=== PATIENT | female | born 1980 | race African-American/Black ===

== ENCOUNTER 2017-05-30 08:25 | Outpatient (CLI) | payer MEDICARE, MEDICAID ==
--- NOTE | 2017-05-30 10:10 | PRG ---
DATE OF SERVICE: 05/30/2017 HISTORY: Ms. Lauren Perez is a very pleasant 36-year-old who presents to the [facility] Center for leo luation of an ulceration of her right transmetatarsal amputation stump. The patient has been previou sly seen in the Wound Center for ulcerations of her right transmetatarsal amputation stump. She stat es that she has been performing dressing changes for the ulceration consisting of a Band-Aid alone. Since the patient was last seen in the Wound Center, Ms. Perez has been admitted to [facility] for treatment of cellulitis of the right lower extremity. The patient has also been admitted to [facility] for cholecystectomy. In addition, the patient is now on dialysis for end-stage renal disease. PHYSICAL EXAMINATION: VITAL SIGNS: Temperature 97.9, pulse 82, respirations 18, blood pressure 183/95. Accu-Chek 180. EXTREMITIES: An ulceration of the right transmetatarsal amputation stump is present which measures a pproximately 1.2 x 1.0 cm. Necrotic and nonviable tissue present within the wound margins was debrid ed with an excisional full-thickness debridement with the use of a curette. Desiccated tissue at the periphery of the wound was excised with the use of scissors. No purulent drainage is associated wit h the wound. No erythema of the skin surrounding the wound is present. No maceration of the skin of the periwound is noted. A dorsalis pedis pulse is easily palpable on the right. No significant matt ma of the right transmetatarsal amputation stump is present on exam today. ASSESSMENT AND PLAN: 1. Ulceration of right transmetatarsal amputation stump as described above. Dressing changes of Hyd rofera Blue will be initiated today. These dressing changes are to be performed 3 times per week aft er cleansing and irrigation. The patient will be performing her own dressing changes. Arrangements will be made again for the patient to be seen by the marble coper. I will see Ms. Perez again in 1 wee k. No antibiotics will be prescribed today based upon the appearance of the wound. 2. Diabetes mellitus. The patient's Accu-Chek in clinic today is 180. The patient has been told th at for optimal wound healing, her blood glucoses should remain below 150. 3. Hypertension. 4. History of deep venous thrombosis and pulmonary embolus. 5. Diabetic gastroparesis.
== END 2017-05-30 08:26 | disposition home or self-care (01) ==
LOC: WCC 08:25
PROVIDERS: ATTEND Family Medicine
DX: T87.89 Other complications of amputation stump (principal); E11.69 Type 2 diabetes mellitus with other specified complication; I12.0 Hypertensive chronic kidney disease with stage 5 chronic kidney disease or end stage renal disease; E11.22 Type 2 diabetes mellitus with diabetic chronic kidney disease; E11.43 Type 2 diabetes mellitus with diabetic autonomic (poly)neuropathy; K31.84 Gastroparesis; N18.6 End stage renal disease; Z99.2 Dependence on renal dialysis; Z86.718 Personal history of other venous thrombosis and embolism; Z89.421 Acquired absence of other right toe(s)
CPT/HCPCS: 11042; 99213; G0463

== ENCOUNTER 2017-05-30 13:45 | Outpatient (CLI) | payer MEDICARE, MEDICAID ==
--- NOTE | 2017-05-30 14:55 | ULT ---
BILATERAL UPPER EXTREMITY VENOUS DOPPLER ULTRASOUND FOR PREDIALYSIS ACCESS: Date: 05/30/17 HISTORY: End-stage renal disease. FINDINGS: RIGHT UPPER EXTREMITY: The right cephalic vein measures 3.2 mm in the proximal arm, 1.8 mm in the mid arm, 1.5 mm in the dis lesa arm, 1.7 mm in the antecubital fossa, 1.9 mm in the proximal forearm, 1.8 mm in the mid forearm, and 1.8 mm in the distal forearm. The right basilic vein measures 4.1 mm in the proximal arm, 2.3 mm in the mid arm, 1.6 mm in the dist al arm, 1.4 mm in the antecubital fossa, 1.2 mm in the proximal forearm, 0.9 mm in the mid forearm, a nd 1.4 mm in the distal forearm. The right brachial artery measures 3.3 mm, radial artery measures 1.8 mm, and ulnar artery measures 2 .9 mm. LEFT UPPER EXTREMITY: The left cephalic vein measures 2.9 mm in the proximal arm, 2.2 mm in the mid arm, 2.3 mm in the dist al arm, 2.0 mm in the antecubital fossa, 1.1 mm in the proximal forearm, 1.2 mm in the mid forearm, a nd 1.2 mm in the distal forearm. The left basilic vein measures 3.2 mm in the proximal arm, 3.3 mm in the mid arm, 1.7 mm in the dista l arm, 1.8 mm in the antecubital fossa, 1.3 mm in the proximal forearm, 1.3 mm in the mid forearm, an d 0.9 mm in the distal forearm. The left brachial artery measures 3.8 mm, radial artery measures 2.2 mm, and ulnar artery measures 1. 6 mm. POS: NANCY
== END 2017-05-30 13:46 | disposition home or self-care (01) ==
LOC: ULT 13:45
PROVIDERS: ATTEND Specialist
DX: Z01.818 Encounter for other preprocedural examination (principal); N18.6 End stage renal disease
CPT/HCPCS: 93970; G0365

== ENCOUNTER 2017-06-29 08:31 | Outpatient (CLI) | payer MEDICARE, MEDICAID ==
--- NOTE | 2017-06-29 19:05 | EKG ---
Test Reason : Blood Pressure : / mmHG Vent. Rate : 076 BPM Atrial Rate : 076 BPM P-R Int : 146 ms QRS Dur : 090 ms QT Int : 490 ms P-R-T Axes : 047 051 080 degrees QTc Int : 551 ms Normal sinus rhythm Prolonged QT Nonspecific ST-T changes Abnormal ECG When compared with ECG of 30-AUG-2016 01:43, Vent. rate has decreased BY 40 BPM Nonspecific T wave abnormality now evident in Lateral leads Confirmed by DR. Rufino PRESTON ([id number]) on 06/29/2017 7:04:50 PM Referred By: KATYA Confirmed By:DR. Rufino PRESTON
== END 2017-06-29 08:32 | disposition home or self-care (01) ==
LOC: LABBT 08:31
PROVIDERS: ATTEND Specialist
DX: Z01.812 Encounter for preprocedural laboratory examination (principal); N18.6 End stage renal disease; Z89.412 Acquired absence of left great toe
CPT/HCPCS: 93005; 93010

== ENCOUNTER 2017-07-01 09:33 | Day surgery (SDC) | payer MEDICARE, MEDICAID ==
--- NOTE | 2017-06-29 08:11 | HP ---
HISTORY OF PRESENT ILLNESS: Lauren Perez is a 36-year-old black female who I have seen in the past regarding a partial amputation of foot. She has morbid obesity, metabolic syndrome, diabetes me llitus, hypertension, end-stage renal disease occurred more recently. I last saw her in 2013 since hat time. About 2 months ago, she presented at [facility] to initiate dialysis. She had a dialysis catheter placed and has subsequently been replaced by Dr. Dangelo. Dr. Dangelo is [facility] fashion consultant. Dr. Mahi Aaron is her primary care physician. She dialyzes at [address], Tuesday, , and Tuesday. She states that Dr. Dangelo insisted that she go [facility] for her dialysis access, but the patient declined and wanted to stay locally. Ultrasound ve in mapping both arms on 05/30/2017 reveals her right upper extremity 3.2, 1.8, 1.5, 1.7 and 1.9 mm i n the proximal forearm, basilic vein 4.1, 2.3, 1.6 mm. Left upper extremity 2.9, 2.2, 2.3, 2.0. Bas ilic vein 3.2, 3.3, 1.7 and 1.8. Plan is for a left upper extremity fistula. She understands the ri sks and benefits and consents. MEDICATIONS: Amlodipine 40 mg a day, Coreg 5 mg twice a day, NovoLog insulin 14 units three times a day. ALLERGIES: KEFLEX, BACTRIM, and METFORMIN. PAST MEDICAL HISTORY: Morbid obesity, metabolic syndrome, diabetes mellitus, hypertension, end-stage renal disease. PAST SURGICAL HISTORY: Cholecystectomy, foot surgery, partial amputation. PHYSICAL EXAMINATION: VITAL SIGNS: Weight 285 pounds, height 5 foot 7 inches, 44 BMI, blood pressure 170/98, heart rate 90 , temperature 98.6 degrees. HEAD, EYES, EARS, NOSE AND THROAT: Unremarkable. LUNGS: Clear to auscultation. CARDIAC: Regular rate and rhythm without murmur or gallop. ABDOMEN: Soft, obese, nontender. EXTREMITIES: Palpable pulses radial bilaterally. ASSESSMENT AND PLAN: End-stage renal disease secondary to diabetes and metabolic syndrome. We will plan placement of a left arm primary fistula. She understands risks and benefits and consents. She understands that she may need a secondary procedure pending her vein status.
[2017-06-29 09:10] VITALS: BMI 50.1
[~2017-07-01 09:33] MED LIST: Heparin 10,000 UNITS/ 10 ML VIAL ONE; Ondansetron HCl/PF 4 MG/2 ML Vial ONE
[2017-07-01] MEDS ORDERED: Levofloxacin 500 mg/D5W 100 ml Premix Bag ONE (10:28)
[2017-07-01 10:36] LABS: #Eosinphils 0.3 thou/uL (0.0-0.7); #Lymphocytes 1.9 thou/uL (1.20-3.40); #Monocytes 0.4 thou/uL (0.11-0.59); #Neutrophils 4.9 thou/uL (1.40-6.50); %Basophils 0.5 % (0.0-1.0); %Monocytes 5.4 % (0.0-10.0); %Neutrophils 65.2 % (42.0-75.0); Hemoglobin 11.1 g/dL (12.0-16.0); Mean Corpuscular HGB CONC 32.9 g/dL (32.0-36.0); Mean Corpuscular Hemoglobin 27.7 pg (27.0-31.0); Mean Corpuscular Volume 84.2 fl (81.0-99.0); Platelet Count 275 thou/uL (130-400); Red Blood Cell (RBC) Count 4.01 mill/uL (4.20-5.40); White Blood Cell (WBC) Count 7.5 thou/uL (4.8-10.8)
[2017-07-01 10:54] LABS: Anion Gap 15 mmol/L (10-20); BUN (Urea Nitrogen) 35 mg/dL (7.0-18.7); Calc. Creatinine Clearance 28 mL/min (70-130); Calcium 7.7 mg/dL (7.8-10.44); Carbon Dioxide 26 mmol/L (22-29); Chloride 104 mmol/L (98-107); Estimated GFR-MDRD 9; Glucose 285 mg/dL (70-105); Potassium 3.8 mmol/L (3.5-5.1); Sodium 141 mmol/L (136-145)
[2017-07-01] MEDS ORDERED: Fentanyl 100 MCG/2 ML VIAL ONE (12:43)
[2017-07-01] MEDS ORDERED: Midazolam HCl 2 mg/2 ml Vial ONE (12:43)
[2017-07-01] MEDS ORDERED: Insulin Regular 300 UNITS/3 ML VIAL ONE (12:46)
[2017-07-01] MEDS ORDERED: Protamine Sulfate 50 MG/5 ML VIAL ONE (13:05)
[2017-07-01] MEDS ORDERED: Heparin 5,000 UNITS/ML VIAL ONE (13:05)
[2017-07-01] MEDS ORDERED: Bupivacaine HCl 0.5%/Epinephrine 1:200,000/PF 30 ml Vial ONE (13:05)
[2017-07-01] MEDS ORDERED: Fentanyl 250 MCG/5 ML VIAL ONE (13:46)
[2017-07-01] MEDS ORDERED: Midazolam HCl 5 mg/5 ml Vial ONE (13:49)
[2017-07-01] MEDS ORDERED: Heparin 10,000 UNITS/ 10 ML VIAL ONE (16:37)
--- NOTE | 2017-07-01 19:21 | OP ---
DATE OF PROCEDURE: 07/01/2017 PREOPERATIVE DIAGNOSES: End-stage renal disease, morbid obesity. POSTOPERATIVE DIAGNOSES: End-stage renal disease, morbid obesity. PROCEDURE: Left arm primary fistula antecubital vein to the proximal radial artery outflow calibrate d to 4 mm coronary dilator. No communication to basilic vein. Perforating branch too small. SURGEON: Dr. Cabrera Trevizo ANESTHESIA: Regional. DESCRIPTION OF PROCEDURE: The patient was taken to the operating room where under regional anesthesi a, her left upper extremity was prepared with ChloraPrep, draped in routine fashion. Incision made a t the wrist, carried down through skin and subcutaneous tissue. The vein was too small and this was closed by approximately subcutaneous tissues with 3-0 Monocryl, skin with subdermal 4-0 Monocryl and DermaGlue applied. Incision made in the proximal volar forearm longitudinally, carried down below th e antecubital fossa down through the skin and subcutaneous tissue. Antecubital vein was identified. Perforating branch identified and was too small to use; nonetheless, dissected free. Branches divid ed between clips and ties. Antecubital vein dissected free, was adequate caliber. Incision extended down the forearm to accomplish this. The patient was given 6000 units heparin intravenously. Antec ubital vein clamped distally ligated with 3-0 silk tie and spatulated with Gibson scissors and interro gated with coronary dilators, passing coronary dilators from a 1.5 mm to a 4 mm coronary dilator out the cephalic vein outflow. The proximal artery had been dissected free, was of good caliber, but jason p due to her obesity. Vascular clamps applied proximally and distally. Longitudinal arteriotomy mad e sharply and elongated for a 2 cm anastomosis and accordingly the antecubital vein spatulated and a 2 cm anastomosis was created between the end antecubital vein and the side proximal artery using cont inuous suture of 6-0 Prolene. Good hemostasis noted. Vascular clamps were released and good flow in the fistula appreciated and evaluated by interrogation of the cephalic vein upper arm outflow. Good hemostasis noted. The patient given protamine intravenous by Anesthesia. Surgicel placed across th e anastomosis, good hemostasis assured. Subcutaneous tissues approximated with 3-0 Monocryl, skin wi th subdermal 4-0 Monocryl and DermaGlue applied. The patient tolerated the procedure well.
== END 2017-07-01 17:18 | disposition home or self-care (01) ==
LOC: SDC 09:33
PROVIDERS: ATTEND Specialist
PROC: 03180ZD Bypass Left Brachial Artery to Upper Arm Vein, Open Approach (ICD-10-PCS; principal; 2017-07-01)
DX: I12.0 Hypertensive chronic kidney disease with stage 5 chronic kidney disease or end stage renal disease (principal); E11.22 Type 2 diabetes mellitus with diabetic chronic kidney disease; N18.6 End stage renal disease; E66.01 Morbid (severe) obesity due to excess calories; Z68.43 Body mass index [BMI] 50.0-59.9, adult; Z88.1 Allergy status to other antibiotic agents; Z88.2 Allergy status to sulfonamides; Z88.8 Allergy status to other drugs, medicaments and biological substances; Z79.4 Long term (current) use of insulin
CPT/HCPCS: 36416; 80048; 85025; J0670; J1644; J1815; J1956; J2250; J2405; J2720; J3010

== ENCOUNTER 2017-08-05 05:54 | Day surgery (SDC) | payer MEDICARE, MEDICAID ==
--- NOTE | 2017-08-02 12:31 | HP ---
HISTORY OF PRESENT ILLNESS: Lauren Perez is a 36-year-old morbidly obese black female, 333 pounds , 5 feet 7 inches, dialyzes at [facility] [address] [place] [address] Tuesday, , and Tuesday. Follow up after placement of left arm fistula on 07/01/2017. Proximal radial artery inflow, no communicatio n of the basilic vein, perforating branches of the antecubital vein too small and the vein was fibrot ic. By the time, she presents today, her fistula is thrombosed. Preoperative vein mapping suggested the left cephalic vein 2.9, 2.2, 2.3 mm and 2.0 mm antecubital fossa, although was dilated to a 4 mm calibration. It was somewhat fibrotic probably explain this thrombosis. There is no thrill or brui t. The patient is left handed. Plan is to return to the operating room and place a right arm fistul a and/or graft as an outpatient. We will use her hemodialysis catheter, IV access and blood draws. She understands risks and benefits and consents. MEDICATIONS: Lopressor 50 mg a day, Norvasc 10 mg a day, Neurontin 100 mg twice a day, hydrochloroth iazide daily, insulin subcu as needed, amlodipine 10 mg a day, Worthington p.r.n. pain. PAST MEDICAL HISTORY: Diabetes mellitus, hypertension, morbid obesity, gastroparesis, depression, an d neuropathic foot ulcers. PAST SURGICAL HISTORY: Transmetatarsal amputation, right foot, in 2012, dialysis access as noted abo ve, amputation of left great toe, right foot debridement of foot in the past. ALLERGIES: BACTRIM, SULFA, KEFLEX. She is on Coumadin 5 mg Tuesday, , Tuesday, Tuesday, Coumadin 10 mg Tuesday, Tuesday, and . PHYSICAL EXAMINATION: VITAL SIGNS: 336 pounds, 52 BMI, 213/109, 80, 97.9 degrees. CARDIAC: Regular rate and rhythm murmur or gallop. ABDOMEN: Soft, obese, nontender. LUNGS: Clear to auscultation. EXTREMITIES: Left arm, surgical wound, small hematoma, no thrill or bruit. Palpable radial pulses b ilaterally. ASSESSMENT AND PLAN: Thrombosed fistula, left arm. It was fibrotic before. We were hoping it would stay open, but has not. As she is left handed, we will now resort to a right arm for primary fistul a or graft. Risk of infection, bleeding, reoperation explained, thrombosis of future fistula graft e xplained, she consents. Coumadin will need to be held that for 5 days preoperatively.
[2017-08-04 11:44] VITALS: BMI 50.1
[2017-08-05] MEDS ORDERED: Lidocaine 2% 10 ML INJ ONE (06:43)
[2017-08-05] MEDS ORDERED: Bupivacaine HCl 0.5%/Epinephrine 1:200,000/PF 30 ml Vial ONE (06:43)
[2017-08-05] MEDS ORDERED: Heparin 5,000 UNITS/ML VIAL ONE (06:43)
[2017-08-05] MEDS ORDERED: Ioversol 68 % 50 ML VIAL ONE (06:43)
[2017-08-05] MEDS ORDERED: Protamine Sulfate 50 MG/5 ML VIAL ONE (06:43)
[2017-08-05 06:54] LABS: #Eosinphils 0.2 thou/uL (0.0-0.7); #Lymphocytes 1.5 thou/uL (1.20-3.40); #Monocytes 0.4 thou/uL (0.11-0.59); #Neutrophils 3.7 thou/uL (1.40-6.50); %Basophils 0.8 % (0.0-1.0); %Eosinophils 3.4 % (0.0-10.0); %Lymphocytes 26.2 % (21.0-51.0); %Monocytes 7.3 % (0.0-10.0); %Neutrophils 62.4 % (42.0-75.0); Hemoglobin 11.1 g/dL (12.0-16.0); Mean Corpuscular HGB CONC 32.2 g/dL (32.0-36.0); Mean Corpuscular Hemoglobin 27.5 pg (27.0-31.0); Mean Corpuscular Volume 85.5 fl (81.0-99.0); Mean Platelet Volume 7.9 fL (7.4-10.4); Platelet Count 153 thou/uL (130-400); RBC Distribution Width 15.9 % (11.5-14.5); Red Blood Cell (RBC) Count 4.04 mill/uL (4.20-5.40); White Blood Cell (WBC) Count 5.9 thou/uL (4.8-10.8)
[2017-08-05] MEDS ORDERED: Midazolam HCl 2 mg/2 ml Vial ONE (07:09)
[2017-08-05] MEDS ORDERED: Fentanyl 100 MCG/2 ML VIAL ONE ×3 (07:09→10:00)
[2017-08-05 07:12] LABS: Anion Gap 14 mmol/L (10-20); BUN (Urea Nitrogen) 38 mg/dL (7.0-18.7); Calc. Creatinine Clearance 24 mL/min (70-130); Calcium 7.9 mg/dL (7.8-10.44); Carbon Dioxide 25 mmol/L (22-29); Chloride 101 mmol/L (98-107); Estimated GFR-MDRD 8; Glucose 296 mg/dL (70-105); Potassium 4.2 mmol/L (3.5-5.1); Sodium 136 mmol/L (136-145)
[2017-08-05] MEDS ORDERED: Levofloxacin 500 mg/D5W 100 ml Premix Bag ONE (07:24)
[2017-08-05] MEDS ORDERED: Insulin Regular 300 UNITS/3 ML VIAL ONE (07:29)
[2017-08-05] MEDS ORDERED: Labetalol HCl 100 MG/20 ML VIAL ONE (10:17)
[2017-08-05] MEDS ORDERED: Ondansetron HCl/PF 4 MG/2 ML Vial ONE (10:50)
--- NOTE | 2017-08-05 11:45 | OP ---
DATE OF PROCEDURE: 08/05/2017 PREOPERATIVE DIAGNOSES: 1. End-stage renal disease. 2. Morbid obesity. 3. Dialysis fistula malfunction, left arm thrombosis. POSTOPERATIVE DIAGNOSES: 1. End-stage renal disease. 2. Morbid obesity. 3. Dialysis fistula malfunction, left arm thrombosis. PROCEDURE: Exploration of the right proximal forearm finding antecubital vein to be excellent calibe r. A right Jennifer fistula calibrated outflow 4 mm coronary dilator. Excellent Doppler signal in th e cephalic and out vein outflow forearm and antecubital area with anticipation that she might need fu ture cephalic vein transposition fistula in the forearm due to morbid obesity. SURGEON: Dr. Cabrera Trevizo ANESTHESIA: General LMA (patient refused block due to shoulder pain post-block last operation). Loc al 0.5% Marcaine with epinephrine, 30 mL, mixed with 2% Xylocaine, 10 mL, 20 mixture used. PROCEDURE IN DETAIL: The patient was taken to the operating room where under general anesthesia, rig ht upper extremity was prepped with ChloraPrep, draped in routine fashion. Proximal volar forearm in cision was made longitudinally below the antecubital fossa carried down the skin and subcutaneous tis mason, a good size antecubital vein was identified. It was so good that incision was made in the right wrist between the cephalic vein and radial artery and cephalic vein noted to be of good caliber. It was dissected free. The patient was given 6000 units heparin intravenously. The vein was dissected free. Branch divided between 4-0 silk ties and clips and on the hand side the vein stump ligated wi 3-0 silk tie and divided, spatulated and interrogated with coronary dilators, passing coronary dil ators from a 2 mm to a 4 mm coronary dilator unobstructed throughout the length of coronary dilators. It was flushed with heparinized saline solution and a bulldog clamp applied. Radial artery was sma ll dissected free. Branch divided between 4-0 silk ties and clips. Longitudinal arteriotomy made rodolfo in the radial artery after controlling the proximal and distal ends with vascular clamps. It w as elongated with the Gibson scissors for a 2 cm anastomosis and vein accordingly spatulated and end-v ein to side radial artery anastomosis created with continuous suture of 6-0 Prolene. After completin g anastomosis, vascular clamps were released and there was good flow in the fistula interrogated by D oppler, noting good Doppler signal in the outflow. Doppler interrogated the cephalic vein at the ant ecubital fossa wound and noted to have a good signal. The patient was given 25 mg of protamine intra venously by Anesthesia. Local anesthetic infiltrated in the skin and subcutaneous tissue about the w ound. Subcutaneous tissues approximated with 3-0 Monocryl, skin with subdermal 4-0 Monocryl and Derm aGlue applied.
[2017-08-05] MEDS ORDERED: Heparin 10,000 UNITS/ 10 ML VIAL ONE ×2 (11:57→17:00)
[2017-08-05] MEDS ORDERED: HYDROcodone/Acetaminophen 5/325 mg Tablet ONE (12:12)
[2017-08-05] MEDS ORDERED: Propofol 200 MG/20 ML VIAL ONE (17:00)
[2017-08-05] MEDS ORDERED: Glycopyrrolate 0.2 MG/ML 5 ML SYRINGE ONE (17:00)
[2017-08-05] MEDS ORDERED: Succinylcholine Chloride 20 MG/ML 10 ml SYRINGE FS ONE (17:00)
[2017-08-05] MEDS ORDERED: Lidocaine 1% PF 5 ML VIAL ONE (17:00)
== END 2017-08-05 13:10 | disposition home or self-care (01) ==
LOC: SDC 05:54
PROVIDERS: ATTEND Specialist
PROC: 031B09F Bypass Right Radial Artery to Lower Arm Vein with Autologous Venous Tissue, Open Approach (ICD-10-PCS; principal; 2017-08-05)
DX: T82.868A Thrombosis due to vascular prosthetic devices, implants and grafts, initial encounter (principal); I12.0 Hypertensive chronic kidney disease with stage 5 chronic kidney disease or end stage renal disease; E11.22 Type 2 diabetes mellitus with diabetic chronic kidney disease; N18.6 End stage renal disease; F32.9 Major depressive disorder, single episode, unspecified; E66.01 Morbid (severe) obesity due to excess calories; Z68.43 Body mass index [BMI] 50.0-59.9, adult; Z99.2 Dependence on renal dialysis; Z88.1 Allergy status to other antibiotic agents; Z88.2 Allergy status to sulfonamides; Z88.8 Allergy status to other drugs, medicaments and biological substances; Z79.899 Other long term (current) drug therapy
CPT/HCPCS: 36416; 80048; 85025; 96374; J0670; J1644; J1815; J1956; J2001; J2250; J2405; J2704; J2720; J3010; Q9967

== ENCOUNTER 2017-09-05 13:03 | Outpatient (CLI) | payer MEDICARE, MEDICAID ==
--- NOTE | 2017-09-05 14:51 | PRG ---
DATE OF SERVICE: 09/05/2017 HISTORY: Ms. Lauren Perez is a very pleasant 37-year-old, who presents to the Wound Center for ev aluation of an ulceration of her right transmetatarsal amputation stump. The patient was last seen i n the Wound Center for an ulceration of her right transmetatarsal amputation stump on 05/30/2017. Th e patient states that this ulceration subsequently healed completely. The patient states that the ul ceration of her right transmetatarsal amputation stump, for which she now presents to the Wound [facility], has been open and draining for approximately 1 week. The patient has been receiving dressing clayton ges of Hydrofera Blue for her wound. The patient has no other complaints today. She denies any feve r or chills. PHYSICAL EXAMINATION: VITAL SIGNS: Temperature 98.4, pulse 80, respirations 18, and blood pressure 126/81. Accu-Chek 107. EXTREMITIES: An ulceration of the right transmetatarsal amputation stump is present, which measures approximately 0.5 x 0.4 cm. Granulation tissue is present within the wound margins. No purulent william inage is associated with the wound. No erythema of the skin surrounding the wound is present. Macer ation of the skin of the periwound is noted. No significant edema of the right transmetatarsal amput ation stump is present on exam today. Bone is palpable within the wound margins with forceps on toda y's exam. ASSESSMENT AND PLAN: 1. Ulceration of right transmetatarsal amputation stump as described above. Dressing changes of Hyd rofera Blue, 4 x 4s, and Kerlix will be continued 3 times per week after cleansing and irrigation. P alexey films of the right transmetatarsal amputation stump will be obtained today. MRI without contras t may also be obtained if plain films failed to reveal any findings suggestive or consistent with ost eomyelitis. I will see Ms. Perez again in one week. 2. Diabetes mellitus. The patient's Accu-Chek in clinic today is 107. The patient has been told th at for optimal wound healing, her blood glucoses should remain below 150. 3. Hypertension. 4. History of deep venous thrombosis and pulmonary embolus. 5. Diabetic gastroparesis.
--- NOTE | 2017-09-05 15:01 | RAD ---
THREE VIEWS RIGHT FOOT: History: Chronic wound. FINDINGS: Amputation of the right foot is unchanged. No significant change in the osseous structures. Soft tiss ue swelling is identified. Subtle lucency at the distal aspect of the remaining second metatarsal may represent a small ulceration or open wound. No radiographic evidence of acute osteomyelitis. IMPRESSION: Possible open wound at the distal aspect of the remaining second digit. If there is concern for osteo myelitis, consider bone scan. POS: NANCY
== END 2017-09-05 13:04 | disposition home or self-care (01) ==
LOC: WCC 13:03
PROVIDERS: ATTEND Family Medicine
DX: T87.89 Other complications of amputation stump (principal); I10 Essential (primary) hypertension; E11.43 Type 2 diabetes mellitus with diabetic autonomic (poly)neuropathy; K31.84 Gastroparesis
CPT/HCPCS: 97602

== ENCOUNTER 2017-09-14 13:30 | Outpatient (CLI) | payer MEDICARE, MEDICAID ==
--- NOTE | 2017-09-14 16:00 | MRI ---
MRI OF THE RIGHT FOOT WITHOUT IV CONTRAST: INDICATION: History of wound on the bottom of the foot with multiple surgeries. FINDINGS: There is a large plantar-based wound underlying the partially amputated 2nd digit of the right foot. There are partial radial amputations involving the metatarsals of the 1st through 5th digit. There is extensive osteomyelitis of the 2nd metatarsal with suspected periosteous abnormality. There is an expected intraosseous abscess seen within the proximal medullary cavity of the 2nd metatarsal shaft measuring 8 mm. Lisfranc ligament is intact. There is normal signal intensity involving the 3rd met atarsal shaft also suspicious for osteomyelitis. There is extensive myositis and surrounding celluli tis of the right foot. IMPRESSION: 1. Osteomyelitis with suspected periosteal abscess and intraosseous abscess involving the 2nd metata rsal. 2. Abnormal edema and marrow signal intensity involving the 3rd metatarsal shaft is suspicious for o steomyelitis. 3. Myositis and cellulitis of the right foot. 4. Large plantar-based wound underlying the distal tip of the partially amputated 2nd metatarsal sit e. POS: NANCY
== END 2017-09-14 13:31 | disposition home or self-care (01) ==
LOC: TBSIIMAG 13:30 → MRI 13:31
PROVIDERS: ATTEND Family Medicine
DX: T81.89XD Other complications of procedures, not elsewhere classified, subsequent encounter (principal); M86.9 Osteomyelitis, unspecified; R60.0 Localized edema; L03.115 Cellulitis of right lower limb; M60.871 Other myositis, right ankle and foot; Z89.411 Acquired absence of right great toe; Z89.421 Acquired absence of other right toe(s)

== ENCOUNTER 2017-09-30 10:10 | Outpatient (CLI) | payer MEDICARE, MEDICAID | END 2017-09-30 10:11 | disposition home or self-care (01) | LOC: BICULT 10:10 | PROVIDERS: ATTEND Internal Medicine Infectious Disease | DX: I70.201 Unspecified atherosclerosis of native arteries of extremities, right leg (principal); L97.514 Non-pressure chronic ulcer of other part of right foot with necrosis of bone; N18.6 End stage renal disease; M79.671 Pain in right foot | CPT/HCPCS: 93923 ==

== ENCOUNTER 2018-07-03 10:30 | Outpatient (CLI) | payer MEDICARE, MEDICAID ==
--- NOTE | 2018-07-03 17:39 | PRG ---
DATE OF SERVICE: 07/03/2018 HISTORY: Ms. Lauren Perez is a very pleasant 37-year-old who presents to the Wound Center for evaluation of 2 wounds of her right transmetatarsal amputation stump. The patient was last seen in the Wound Center on 09/05/2017. Subsequently, MRI of the right foot was obtained, which revealed osteomyelitis of the second metatarsal. The patient was seen in consultation by Dr. Marck Botello. She states that she has received IV antibiotics as per Infectious Diseases. The patient states that for one of the wounds of her right transmetatarsal amputation stump, she has been performing dressing changes of Hydrofera Blue. PHYSICAL EXAMINATION: VITAL SIGNS: Temperature 97.5, pulse 77, respirations 17, and blood pressure 138/97. Accu-Chek 115. EXTREMITIES: Two wounds of the right transmetatarsal amputation stump are present. The larger wound measures approximately 0.3 x 0.2 cm, undermining associated with the wound was eliminated with the use of scissors. Granulation tissue was present within the wound margins. Nonviable tissue present within the wound margins was debrided with an excisional full-thickness debridement. Desiccated tissue at the periphery of the wound was excised with the use of scissors. No purulent drainage was associated with the wound. No erythema of the skin surrounding the wound is present. No maceration of the skin of the periwound was noted. No significant edema of the right transmetatarsal amputation stump is present on exam today. Post debridement measurements were approximately 1.0 x 2.0 cm. ASSESSMENT AND PLAN: 1. Ulcerations of right transmetatarsal amputation stump as described above. Dressing changes of Medihoney followed by Mepilex border will be initiated today. These dressing changes are to be performed 3 times per week after cleansing and irrigation. I will see Ms. Perez again in 2 weeks. I have explained to the patient if the dimensions of the wounds of the right transmetatarsal amputation stump failed to decrease in a timely manner, consideration will need to be given to evaluation for refractory osteomyelitis. The patient understands and is in agreement with the preceding treatment plan. She states she will return for a followup visit in approximately 2 weeks. 2. Diabetes mellitus. The patient's Accu-Chek in clinic today is 115. The patient has been told that for optimal wound healing, her blood glucoses should remain below 150. 3. Hypertension. 4. History of deep venous thrombosis and pulmonary embolus. 5. Diabetic gastroparesis. Job ID: [id number]
== END 2018-07-03 10:31 | disposition home or self-care (01) ==
LOC: WCC 10:30
PROVIDERS: ATTEND Family Medicine
DX: T87.89 Other complications of amputation stump (principal); I10 Essential (primary) hypertension; E11.43 Type 2 diabetes mellitus with diabetic autonomic (poly)neuropathy; K31.84 Gastroparesis; Z89.421 Acquired absence of other right toe(s); Z86.718 Personal history of other venous thrombosis and embolism; Z86.711 Personal history of pulmonary embolism
CPT/HCPCS: 11042; 99213; G0463

== ENCOUNTER 2018-08-02 10:11 | Outpatient (CLI) | payer MEDICARE, MEDICAID ==
--- NOTE | 2018-08-02 10:41 | PRG ---
DATE OF SERVICE: 08/02/2018 HISTORY OF PRESENT ILLNESS: Ms. Lauren Perez is a very pleasant 38-year-old, who presents to the Wound Center for evaluation of two wounds of her right transmetatarsal amputation stump. The patient was previously seen in the Wound Center on 09/05/2017. Subsequently, MRI of the right foot was obtained, which revealed osteomyelitis of the second metatarsal. The patient was then seen in consultation by Dr. Marck Botello. The patient received IV antibiotics as per Infectious Diseases. When the patient was seen in the Wound Center on 07/03/2018, she stated that for one of the wounds of her right transmetatarsal amputation stump, she had been performing dressing changes of Hydrofera Blue. After being seen in the Wound Center on 07/03/2018, the patient was placed on dressing changes of Medihoney. PHYSICAL EXAMINATION: VITAL SIGNS: Temperature 97.8, pulse 75, respirations 19, and blood pressure 125/67. Accu-Chek 115. EXTREMITIES: Only one wound of the right transmetatarsal amputation stump remains. The dimensions of the wound are approximately 1.0 x 1.0 cm. Granulation tissue is present within the wound margins. Necrotic and nonviable tissue present within the wound margins were debrided with an excisional full-thickness debridement with the use of a curette. Desiccated tissue and callus at the periphery of the wound were excised with the use of scissors. No purulent drainage is associated with the wound. No erythema of the skin surrounding the wound is present. No maceration of the skin of the periwound is noted. No significant edema of the right transmetatarsal amputation stump is present on exam today. Post-debridement measurements are approximately 1.5 x 0.7 cm. ASSESSMENT AND PLAN: 1. Ulcerations of right transmetatarsal amputation stump as stated above only one ulceration remains. Dressing changes of Medihoney followed by Mepilex border are to be performed 3 times per week after cleansing and irrigation. I will see Ms. Perez again in 3 weeks. The patient has been seen by the software tools developer today. The patient will also be seen by the software tools developer in 3 weeks. 2. Diabetes mellitus. The patient's Accu-Chek in clinic today is 115. The patient has been reminded that for optimal wound healing, her blood glucoses should remain below 150. 3. Hypertension. 4. History of deep venous thrombosis and pulmonary embolus. 5. Diabetic gastroparesis. Job ID: [id number]
[2018-08-02] MEDS ORDERED: Sodium Chloride 0.9% 15 ML NEB ONE (18:00)
[2018-08-02] MEDS ORDERED: Lidocaine 2% 11 ML SYR ONE (18:00)
== END 2018-08-02 10:12 | disposition home or self-care (01) ==
LOC: WCC 10:11
PROVIDERS: ATTEND Family Medicine
DX: T87.89 Other complications of amputation stump (principal); E11.43 Type 2 diabetes mellitus with diabetic autonomic (poly)neuropathy; K31.84 Gastroparesis; E11.621 Type 2 diabetes mellitus with foot ulcer; L97.519 Non-pressure chronic ulcer of other part of right foot with unspecified severity; I10 Essential (primary) hypertension; Z86.73 Personal history of transient ischemic attack (TIA), and cerebral infarction without residual deficits
CPT/HCPCS: A4218

== ENCOUNTER 2018-08-23 10:53 | Outpatient (CLI) | payer MEDICARE, MEDICAID ==
--- NOTE | 2018-08-23 10:46 | PRG ---
DATE OF SERVICE: 08/23/2018 HISTORY: Ms. 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 Since the patient's last visit, Ms. 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 The patient states that 1 week after her last visit to the [facility], she was seen by Dr. Marck Botello and lab work was obtained. She states that she was told that no further antibiotic therapy is indicated. PHYSICAL EXAMINATION: VITAL SIGNS: Temperature 98.2, pulse 78, and blood pressure 174/77. Accu-Chek 125. EXTREMITIES: Wound of the right transmetatarsal amputation stump is present, which measures approximately 1.3 x 0.7 cm. Granulation tissue is present within the wound margins. Necrotic and nonviable tissue present within the wound margins was debrided with an excisional full-thickness debridement with the use of a curette. Desiccated tissue undermining and callus at the periphery of the wound were eliminated with the use of scissors. No purulent drainage is associated with the wound. No erythema of the skin surrounding the wound is present. No maceration of the skin of the periwound is noted. No significant edema of the right transmetatarsal amputation stump is present on today's exam. ASSESSMENT AND PLAN: 1. Ulceration of right transmetatarsal amputation stump as described above. Dressing changes of Medihoney will be continued 3 times per week after cleansing and irrigation. I will see Ms. Perez again in 3 weeks. The patient has been seen by the forestry extension specialist today. The patient will also be seen by the forestry extension specialist again in 3 weeks. 2. Diabetes mellitus. The patient's Accu-Chek in clinic today is 125. The patient has been reminded that for optimal wound healing, her blood glucoses should remain below 150. 3. Hypertension. 4. History of deep venous thrombosis and pulmonary embolus. 5. Diabetic gastroparesis. Job ID: [id number]
[2018-08-23] MEDS ORDERED: Sodium Chloride 0.9% 15 ML NEB ONE (15:07)
[2018-08-23] MEDS ORDERED: Lidocaine 2% Jelly 5 ML TUBE ONE (15:07)
== END 2018-08-23 10:54 | disposition home or self-care (01) ==
LOC: WCC 10:53
PROVIDERS: ATTEND Family Medicine
DX: T87.89 Other complications of amputation stump (principal); E11.621 Type 2 diabetes mellitus with foot ulcer; L97.519 Non-pressure chronic ulcer of other part of right foot with unspecified severity; I10 Essential (primary) hypertension; E11.43 Type 2 diabetes mellitus with diabetic autonomic (poly)neuropathy; K31.84 Gastroparesis; Z86.718 Personal history of other venous thrombosis and embolism
CPT/HCPCS: 11042; A4218

== ENCOUNTER 2018-09-13 10:47 | Outpatient (CLI) | payer MEDICARE, MEDICAID ==
--- NOTE | 2018-09-13 11:59 | PRG ---
DATE OF SERVICE: 09/13/2018 HISTORY: Ms. 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 Since the patient's last visit, Ms. 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 The patient was seen in July of this year by Dr. Marck Botello of Infectious Diseases. The patient stated that she was told no further antibiotic therapy was warranted. PHYSICAL EXAMINATION: VITAL SIGNS: Temperature 98.2, pulse 78, respirations 17, blood pressure 130/ 73. Accu-Chek 120. EXTREMITIES: A wound of the right transmetatarsal amputation stump is present, which measures approximately 2.7 x 0.8 cm. The dimensions of the wound at the time of the patient's last visit were approximately 1.3 x 0.7 cm. Granulation tissue is present within the wound margins. Necrotic and nonviable tissue present within the wound margins was debrided with an excisional full-thickness debridement. Desiccated tissue, undermining, and callus at the periphery of the wound were eliminated with the use of scissors. No purulent drainage is associated with the wound. No erythema of the skin surrounding the wound is present. No maceration of the skin of the periwound is noted. No significant edema of the right transmetatarsal amputation stump is present on exam today. A second wound of the right transmetatarsal amputation stump is noted on exam today associated with drainage. A sample of the drainage was sent for aerobic and anaerobic cultures. No connection of the wound to underlying bone was able to be appreciated on today's exam. ASSESSMENT AND PLAN: 1. Ulceration of right transmetatarsal amputation stump as described above. Also as stated above, a second wound of the right transmetatarsal amputation stump is present associated with drainage, which was sent for aerobic and anaerobic cultures. Dressing changes of Silvasorb Sheet will be initiated today. These dressing changes are to be performed 3 times per week after cleansing and irrigation. Plain films of the right foot will also be obtained to look for findings suggestive of osteomyelitis. The patient has been seen by the ophthalmic surgeon today. I will see Ms. Perez again after plain films of the right foot have been obtained. Allevyn will be continued as a secondary dressing. 2. Diabetes mellitus. The patient's Accu-Chek in clinic today is 120. The patient has been reminded that for optimal wound healing, her blood glucoses should remain below 150. 3. Hypertension. 4. History of deep venous thrombosis and pulmonary embolus. 5. Diabetic gastroparesis. Job ID: [id number] MTDD
[2018-09-13] MEDS ORDERED: Sodium Chloride 0.9% 15 ML NEB ONE (18:00)
== END 2018-09-13 10:48 | disposition home or self-care (01) ==
LOC: WCC 10:47
PROVIDERS: ATTEND Family Medicine
DX: T87.89 Other complications of amputation stump (principal); E11.43 Type 2 diabetes mellitus with diabetic autonomic (poly)neuropathy; I10 Essential (primary) hypertension; Z86.718 Personal history of other venous thrombosis and embolism
CPT/HCPCS: 11042; 87070; 87077; 87186; 87205; A4218

== ENCOUNTER 2019-11-03 23:06 | Emergency (ER) | payer MEDICARE, OTHER ==
--- NOTE | 2019-11-03 23:38 | CT ---
CT HEAD WITHOUT IV CONTRAST COMPARISON: None HISTORY: Altered mental status. TECHNIQUE: Axial CT imaging at 5 mm intervals from vertex through skull base without contrast FINDINGS: There is no evidence of an acute infarction, hemorrhage, mass effect, or midline shift. The ventricul ar system is normal in size, shape, and position. There is mild thickening of the watkins of the right maxillary antrum. As well as paranasal sinuses and mastoid air cells are clear. Osseous structures appear intact. IMPRESSION: 1. No acute intracranial abnormality demonstrated.
[2019-11-03 23:52] LABS: ALT (SGPT) 18 U/L (8-55); AST (SGOT) 23 U/L (5-34); Albumin 2.1 g/dL (3.5-5.0); Alkaline Phosphatase 321 U/L (40-110); Anion Gap 11 mmol/L (10-20); BUN (Urea Nitrogen) 19 mg/dL (7.0-18.7); Bilirubin, Total 0.8 mg/dL (0.2-1.2); Calc. Creatinine Clearance 0 mL/min (70-130); Calcium 7.9 mg/dL (7.8-10.44); Carbon Dioxide 32 mmol/L (22-29); Chloride 91 mmol/L (98-107); Estimated GFR-MDRD 18; Glucose 161 mg/dL (70-105); Potassium 3.4 mmol/L (3.5-5.1); Protein, Total 7.1 g/dL (6.0-8.3); Sodium 131 mmol/L (136-145)
[2019-11-04 00:02] LABS: Anisocytosis MODERATE=16-30 cells (100X) (0-5/hpf); Band 8 % (5-11); Hemoglobin 6.6 g/dL (12.0-16.0); Lymphocytes 4 % (21-51); MDiff Complete? YES; Mean Corpuscular HGB CONC 30.8 g/dL (32.0-36.0); Mean Corpuscular Hemoglobin 24.1 pg (27.0-31.0); Mean Corpuscular Volume 78.4 fL (78.0-98.0); Mean Platelet Volume 7.8 fL (7.4-10.4); Monocytes 3 % (0-10); Neutrophil 85 % (42-75); Platelet Count 266 thou/uL (130-400); RBC Distribution Width 22.5 % (11.5-14.5); Red Blood Cell (RBC) Count 2.73 mill/uL (4.20-5.40)
[2019-11-04] MEDS ORDERED: Piperacillin/Tazobactam 4.5 GM VIAL ONE (00:17)
[2019-11-04] MEDS ORDERED: Vancomycin 1 GM/200 ML BAG ONE (00:17)
[2019-11-04 00:36] LABS: CKMB 0.4 ng/mL (0-6.6)
== END 2019-11-04 03:40 | disposition short-term general hospital (02) ==
LOC: ERS 23:06
DX: R65.20 Severe sepsis without septic shock (principal); R41.82 Altered mental status, unspecified; D64.9 Anemia, unspecified; N18.6 End stage renal disease; E11.9 Type 2 diabetes mellitus without complications; I10 Essential (primary) hypertension; Z86.711 Personal history of pulmonary embolism; Z79.899 Other long term (current) drug therapy
CPT/HCPCS: 36416; 70450; 71045; 80053; 82553; 83605; 84484; 85025; 87040; 93005; J2543; J3370

== ENCOUNTER 2019-11-21 15:36 | Day surgery (SDC) | payer MEDICARE, MEDICAID ==
[2019-11-21] MEDS ORDERED: Promethazine 25 MG TAB PO PRN (18:13)
[2019-11-21] MEDS ORDERED: Acetaminophen/Codeine 30-300mg Tablet PO PRN ×2 (18:14)
[2019-11-21 18:18] VITALS: BMI 46.8
[2019-11-21] MEDS ORDERED: traMADol HCl 50 MG TAB PO PRN (19:08)
[2019-11-21] MEDS ORDERED: oxyCODONE 5 MG TAB PO PRN (19:08)
[2019-11-21] MEDS ORDERED: Acetaminophen 500 MG TAB PO SCH (21:00)
[2019-11-21] MEDS ORDERED: diphenhydrAMINE 50 MG/ML VIAL IVP SCH (21:00)
[2019-11-21] MEDS ORDERED: Gabapentin 300 MG CAP PO SCH (21:00)
[2019-11-21] MEDS ORDERED: HumaLOG 300 UNITS/3 ML VIAL SC SCH (21:00)
[2019-11-21 21:55] VITALS: BP 179/81
[2019-11-22 07:17] VITALS: TEMP 98.6
[2019-11-22] MEDS ORDERED: AMLODIPINE BES PO SCH (09:00)
[2019-11-22] MEDS ORDERED: Amlodipine 10 MG TAB PO SCH (09:00)
[2019-11-22] MEDS ORDERED: OLMESARTAN MED PO SCH (09:00)
[2019-11-22] MEDS ORDERED: Losartan 25 MG TAB PO SCH (09:00)
[2019-11-22] MEDS ORDERED: [UNRECOGNIZED DRUG - OTHER] PO SCH (09:00)
== END 2019-11-22 06:40 ==
LOC: ERS 15:36 → ONC/OP 17:19 → ONC 17:44 → ONC/OP 11-22 06:40
PROVIDERS: ATTEND Internal Medicine Nephrology
PROC: 30233N1 Transfusion of Nonautologous Red Blood Cells into Peripheral Vein, Percutaneous Approach (ICD-10-PCS; principal; 2019-11-21)
DX: N18.6 End stage renal disease (principal); D63.1 Anemia in chronic kidney disease; Z79.4 Long term (current) use of insulin; Z79.899 Other long term (current) drug therapy; Z88.1 Allergy status to other antibiotic agents; Z88.2 Allergy status to sulfonamides; Z88.8 Allergy status to other drugs, medicaments and biological substances
CPT/HCPCS: 36415; 36416; 36430; 86850; 86900; 86901; 93005; J1200; P9016